=== PATIENT | female | born 2000 | race Two or more races ===

== ENCOUNTER → 2024-03-10 08:48 | Outpatient (CLI) | payer OTHER | END | disposition home or self-care (01) | LOC: PRENATAL 08:48 | PROVIDERS: ATTEND Obstetrics & Gynecology Maternal & Fetal Medicine | DX: O36.80X0 Pregnancy with inconclusive fetal viability, not applicable or unspecified (principal); Z36.82 Encounter for antenatal screening for nuchal translucency; Z36.9 Encounter for antenatal screening, unspecified; Z14.8 Genetic carrier of other disease; Z3A.13 13 weeks gestation of pregnancy ==

== ENCOUNTER → 2024-04-25 08:12 | Outpatient (CLI) | payer OTHER | END | disposition home or self-care (01) | LOC: PRENATAL 08:12 | PROVIDERS: ATTEND Obstetrics & Gynecology Maternal & Fetal Medicine | DX: O44.00 Complete placenta previa NOS or without hemorrhage, unspecified trimester (principal); Z3A.20 20 weeks gestation of pregnancy ==

== ENCOUNTER 2024-07-08 14:51 | Outpatient (CLI) | payer OTHER | END 2024-07-08 14:52 | disposition home or self-care (01) | LOC: PRENATAL 14:51 | PROVIDERS: ATTEND Obstetrics & Gynecology Maternal & Fetal Medicine | DX: O26.849 Uterine size-date discrepancy, unspecified trimester (principal); O36.8199 Decreased fetal movements, unspecified trimester, other fetus; O44.00 Complete placenta previa NOS or without hemorrhage, unspecified trimester; Z3A.30 30 weeks gestation of pregnancy ==

== ENCOUNTER → 2024-08-04 11:17 | Outpatient (CLI) | payer OTHER | END | disposition home or self-care (01) | LOC: PRENATAL 11:17 | PROVIDERS: ATTEND Obstetrics & Gynecology Maternal & Fetal Medicine | DX: O26.849 Uterine size-date discrepancy, unspecified trimester (principal); O36.8199 Decreased fetal movements, unspecified trimester, other fetus; Z3A.34 34 weeks gestation of pregnancy ==

== ENCOUNTER 2024-08-30 12:53 | Inpatient (IN) | payer OTHER ==
[2024-08-30] VITALS (14 sets, daily range): BP systolic 113–131; BP diastolic 57–79
[~2024-08-30] VITALS: Ht 170.2 cm; Wt 73.5 kg
[2024-08-30] MEDS ORDERED: MORPHINE SULFATE 4 MG/ML VIAL IV ONE ×2 (13:15→17:15)
[2024-08-30] MEDS ORDERED: RINGERS SOLUTION,LACTATED 1,000 ML IV SCH (13:15)
[2024-08-30] MEDS ORDERED: OXYTOCIN 500 ML IV SCH (13:15)
[2024-08-30] MEDS ORDERED: PRENATABS RX T1 EACH PO (13:55)
[2024-08-30 14:08] LABS: HEMATOCRIT 32.6 % (36.0-45.00); HEMOGLOBIN 10.7 g/dL (12.0-15.00); PLATELET COUNT 214 K/uL (150-450); RED BLOOD COUNT 3.83 M/uL (4.00-6.00); RED CELL DISTRIBUTION WIDTH 13.7 % (11.5-14.5)
[2024-08-30 14:13] LABS: PH,URINE 6.5 (5.0-8.0); URINE APPEARANCE Clear; URINE BILIRRUBIN Negative (NEGATIVE); URINE COLOR Yellow; URINE GLUCOSE Negative (NEGATIVE); URINE KETONE Negative (NEGATIVE); URINE LEUKOCYTE Negative; URINE NITRATE Negative; URINE PROTEIN Negative (NEGATIVE); URINE UROBILINOGEN 0.2 E.U./dl
[2024-08-30 14:18] LABS: URINE BACTERIA 101.5 uL (0.0-1933); URINE EPITHELIAL CELLS 9.3 uL (0.0-38.8); URINE RBC 38.1 uL (0.0-20.8); URINE WBC 14.2 uL (0.0-23.2)
[2024-08-30 14:26] LABS: INR < 0.93; PARTIAL THROMBOPLASTIN TIME 24.5 SECONDS (22.0-34.0); PROTHROMBIN TIME 9.6 SECONDS (9.0-11.5)
[2024-08-30 14:43] LABS: BILIRUBIN TOTAL 0.25 mg/dL (0.3-1.2); CALCIUM 9.2 mg/dL (8.5-10.1); CREATININE SERUM 0.73 mg/dL (0.55-1.02); GFR 98.79; GLOBULINA 3.7 G/DL (2.4-3.5); POTASSIUM 4.39 mEq/L (3.5-5.1); TOTAL PROTEIN 6.7 gm/dL (6.4-8.2)
[2024-08-30 15:18] LABS: URINE BLOOD TRACE; URINE CAST 0.14 uL (0.0-1.40)
[2024-08-30] MEDS ORDERED: LIDOCAINE HCL 1% 10ML VIAL PERCUT ONE (20:45)
[2024-08-30] MEDS ORDERED: IBUprofen 400 MG TABLET PO PRN (20:45)
[2024-08-30] MEDS ORDERED: OXYTOCIN 1,000 ML IV SCH (20:45)
[2024-08-30] MEDS ORDERED: CHLORHEXIDINE GLUCONATE 120 ML BOTTLE TOP ONE (20:45)
[2024-08-30] MEDS ORDERED: ERYTHROMYCIN BASE OPHT 1GM EACH TUBE OP ONE (20:45)
[2024-08-31 01:23] VITALS: BP 117/67
[2024-08-31 08:00] VITALS: BP 116/78
[2024-08-31 08:48] LABS: HEMATOCRIT 27.9 % (36.0-45.00); HEMOGLOBIN 9.2 g/dL (12.0-15.00); MEAN CELL VOLUME 84.2 fL (80.00-100.00); MEAN CORPUSCULAR HEMOGLOBIN 27.8 pg (27.00-32.0); PLATELET COUNT 187 K/uL (150-450); RED BLOOD COUNT 3.31 M/uL (4.00-6.00); RED CELL DISTRIBUTION WIDTH 13.9 % (11.5-14.5)
[2024-08-31] MEDS ORDERED: PNV,CALCIUM 72/IRON/FOLIC ACID 1 TAB TABLET PO SCH (09:00)
[2024-08-31 16:00] VITALS: BP 110/70
[2024-09-01 00:54] VITALS: BP 106/70
[2024-09-01 05:26] VITALS: BP 115/74
[2024-09-01 08:26] VITALS: BP 105/68
== END 2024-09-01 12:42 | disposition home or self-care (01) | DRG 807 ==
LOC: OB/GYN 12:53 → LDR 12:53 → OB/GYN 23:00 → O/R 08-31 15:17 → OB/GYN 08-31 15:18
PROVIDERS: ADMIT Obstetrics & Gynecology; ATTEND Obstetrics & Gynecology
PROC: 10E0XZZ Delivery of Products of Conception, External Approach (ICD-10-PCS; principal; 2024-08-30)
PROC: 0KQM0ZZ Repair Perineum Muscle, Open Approach (ICD-10-PCS; 2024-08-30)
PROC: 4A1HXCZ Monitoring of Products of Conception, Cardiac Rate, External Approach (ICD-10-PCS; 2024-08-30)
DX: O70.1 Second degree perineal laceration during delivery (principal); Z37.0 Single live birth; Z3A.37 37 weeks gestation of pregnancy; Z20.822 Contact with and (suspected) exposure to COVID-19